=== PATIENT | male | born 1990 | race Caucasian/White ===

== ENCOUNTER 2021-09-04 18:12 | Emergency (ER) | payer OTHER, MEDICAID ==
[~2021-09-04] VITALS: Ht 172.7 cm; Wt 108.9 kg
[~2021-09-04 18:12] MED LIST: BENTYL20 MG PO; NOHOMEMEDICATIONS; PERCOCET 5-3251 EACH PO
[2021-09-04 19:16] LABS: ABSOLUTE EOSINOPHILS 0.1 thou/uL (0.0-0.7); ABSOLUTE LYMPHOCYTES 1.4 thou/uL (0.8-5.3); ABSOLUTE MONOCYTES 0.5 thou/uL (0.0-1.2); ABSOLUTE NEUTROPHILS 8.5 thou/uL (1.6-8.1); BASOPHILS 0.4 %; HEMATOCRIT 44.2 % (42.0-52.0); LYMPHOCYTES 13.5 %; MCH 28.3 pg (26.0-34.0); MCHC 33.9 g/dL (28.0-37.0); MCV 83.4 fL (80.0-100.0); MONOCYTES 4.4 %; MPV 8.2 fl. (7.2-11.1); NUCLEATED RBCS 0 /100WBC; PLATELET COUNT* 270 thou/uL (150-400); POLYS 80.7 %; RDW-CV 12.4 % (10.5-14.5); WBC 10.6 thou/uL (4.0-11.0)
[2021-09-04 19:23] LABS: CALCIUM 9.4 mg/dL (8.5-10.1); CREATININE 1.3 mg/dL (0.6-1.3); POTASSIUM 4.1 mmol/L (3.5-5.1)
[2021-09-04 19:28] LABS: ALBUMIN 4.2 g/dL (3.4-5.0); TOTAL BILIRUBIN 0.4 mg/dL (<0.1-1.0); TOTAL PROTEIN 8.2 g/dL (6.4-8.2)
[2021-09-04 20:35] VITALS: BP 126/79
--- NOTE | 2021-09-05 08:59 | EKG ---
[place] [address] ELECTROCARDIOGRAM REPORT Name: MANDO GUERRIER Room: [facility]#: [id number] Admission: 09/04/21 Attend Phys: Discharge: 09/04/21 Date of : 88 Date of Service: 09/04/211812 Report #: [id number] THIS REPORT FOR: //name// [facility] ED Test Date: 2021-09-04 Test Time: 18:13:37 Pat Name: MANDO GUERRIER Department: Room: Gender: Shipping Processor: : 1990 Requested By: Toni Hooper Order Number: [id number] MD: Michael Santillan Measurements Intervals [place] Rate: 126 P: 43 AK: 139 QRS: 22 QRSD: 84 T: 13 QT: 310 QTc: 449 Interpretive Statements Sinus tachycardia Baseline wander in lead(s) V4 No previous ECG available for comparison Electronically Signed On 09-05-2021 8:59:29 [employer] by Michael Santillan [email or web address] <ELECTRONICALLY SIGNED> By: Michael Santillan MD, [facility] 09/05/21 0859 1813 12 Michael Santillan MD, [facility] /EPI
== END 2021-09-04 20:35 | disposition home or self-care (01) ==
LOC: M.ERS 18:12
PROVIDERS: Physician Assistant
DX: R07.89 Other chest pain (principal); Z90.49 Acquired absence of other specified parts of digestive tract